=== PATIENT | male | born 1960 | race Two or more races ===

== ENCOUNTER 2022-06-21 03:17 | Emergency (ER) | payer MEDICAID ==
[~2022-06-21] VITALS: Ht 157.5 cm; Wt 57.0 kg
[2022-06-21 03:57] LABS: Basophils # (auto) 0.1 10 ^3/uL (0-0.2); Basophils % (auto) 0.6 % (0.0-2.0); Eosinophils # (auto) 0.2 10 ^3/uL (0-0.8); Eosinophils % (auto) 1.6 % (0.0-7.0); Hematocrit 31.9 % (41.0-53.0); Hemoglobin 10.5 g/dL (13.5-17.5); Lymphocytes # (auto) 5.1 10 ^3/uL (0.4-5.4); Lymphocytes % (auto) 48.9 % (10.0-50.0); Mean Corpuscular Hemoglobin 28.5 pg (28.0-32.0); Mean Corpuscular Hgb Conc. 32.7 g/dL (32.0-36.0); Monocytes # (auto) 0.9 10 ^3/uL (0-1.3); Monocytes % (auto) 8.7 % (0.0-12.0); Neutrophils # (auto) 4.2 10 ^3/uL (1.6-8.6); Neutrophils % (auto) 40.2 % (37.0-80.0); Red Blood Cells 3.67 10^6/uL (4.5-5.90); Red Cell Distribution Width 16.3 % (11.8-14.3); White Blood Cell 10.3 10^3/uL (4.4-10.8)
[2022-06-21 04:13] LABS: BUN/Creatinine Ratio 30.3; Calcium 8.7 mg/dL (8.5-10.1); Potassium 3.3 mmol/L (3.5-5.1)
[2022-06-21 04:16] LABS: Bilirubin, Total 0.7 mg/dL (0.2-1.0); Total Protein 6.4 g/dL (6.4-8.2)
[2022-06-21] MEDS ORDERED: IOHEXOL 350 MG/ML 100ML IJ ONE (04:27)
[2022-06-21] MEDS ORDERED: PANTOPRAZOLE 40 MG/10 ML VIAL INJ IV ONE (04:30)
[2022-06-21] MEDS ORDERED: PANTOPRAZOLE 40mg/50ML NS AE 50 ML IV ONE (04:30)
[2022-06-21] MEDS ORDERED: ONDANSETRON HCL 4 MG/2 ML VIAL IV ONE (04:45)
[2022-06-21] MEDS ORDERED: FAMOTIDINE (10MG/ML) 2ML VL IV ONE (04:45)
[2022-06-21] MEDS ORDERED: ALUM & MAG HYDROX-SIMETH LIQ(MAALOX) 30 ML PO ONE (04:45)
[2022-06-21] MEDS ORDERED: POTASSIUM EFFERVESENT TAB 25 MEQ PO ONE (04:45)
[2022-06-21] MEDS ORDERED: LIDOCAINE VISCOUS 2% 15ML UD PO ONE (04:45)
[2022-06-21 04:51] LABS: INR 1.15 (0.9-1.15); Partial Thromboplastin Time 28.2 sec (24.6-33.4)
[2022-06-21 05:27] LABS: Lactic Acid w/Reflex 10.4 mmol/L (0.4-2.0)
[2022-06-21 08:18] LABS: Urine Bacteria NONE SEEN /hpf (None Seen); Urine Blood Negative /uL (Negative); Urine Specific Gravity 1.046 (1.001-1.035); Urine WBC 2 /hpf (0 - 3)
[2022-06-21] MEDS ORDERED: SODIUM CHLORIDE 0.9% 500 ML IV ONE (09:00)
[2022-06-21] MEDS ORDERED: SODIUM CHLORIDE 0.9% 1,000 ML IV SCH (09:15)
[2022-06-21] MEDS ORDERED: OCTREOTIDE ACETATE 100 MCG in SODIUM CHL 0.9% 50 ML IV ONE (09:15)
[2022-06-21] MEDS ORDERED: OCTREOTIDE ACETATE 500 MCG in SODIUM CHL 0.9% 99 ML IV SCH (09:15)
[2022-06-21] MEDS ORDERED: cefTRIAXone 1GM/50ML D5W 50 ML IV ONE (09:30)
[2022-06-21] MEDS ORDERED: metroNIDAZOLE 500MG/100ML 100 ML IV ONE (09:30)
[2022-06-21] MEDS ORDERED: SODIUM CHLORIDE 0.9% 1,000 ML IV ONE (11:30)
[2022-06-21] MEDS ORDERED: NOREPINEPHRINE 8 MG/250ML KIT 250 ML IV SCH (12:30)
[2022-06-21 13:09] LABS: Basophils # (auto) 0 10 ^3/uL (0-0.2); Eosinophils # (auto) 0 10 ^3/uL (0-0.8); Eosinophils % (auto) 0.1 % (0.0-7.0); Lymphocytes # (auto) 1.5 10 ^3/uL (0.4-5.4); Monocytes # (auto) 0.4 10 ^3/uL (0-1.3); Nucleated Red Blood Cells % 0.1 %; White Blood Cell 4.9 10^3/uL (4.4-10.8)
[2022-06-21 13:13] LABS: Basophils % (auto) 0.5 % (0.0-2.0); Hematocrit 22.9 % (41.0-53.0); Hemoglobin 7.7 g/dL (13.5-17.5); Lymphocytes % (auto) 30.5 % (10.0-50.0); Mean Corpuscular Hgb Conc. 33.9 g/dL (32.0-36.0); Mean Corpuscular Volume 85.5 fL (80.0-100.0); Monocytes % (auto) 8.2 % (0.0-12.0); Neutrophils % (auto) 60.7 % (37.0-80.0); Red Blood Cells 2.67 10^6/uL (4.5-5.90); Red Cell Distribution Width 16.2 % (11.8-14.3)
[2022-06-21 14:05] VITALS: BP 99/58
== END 2022-06-21 14:29 | disposition short-term general hospital (02) ==
LOC: ER 03:17
DX: K92.2 Gastrointestinal hemorrhage, unspecified (principal); E87.6 Hypokalemia; E11.9 Type 2 diabetes mellitus without complications; I10 Essential (primary) hypertension; Z20.822 Contact with and (suspected) exposure to COVID-19
CPT/HCPCS: 36415; 36600; 71045; 74177; 80053; 81001; 82010; 82805; 82962; 83605; 83690; 83735; 84484; 85025; 85384; 85610; 85730; 86850; 86900; 86901; 86920; 87426; 93005; 96361; 96365; 96366; 96367; 96368; 96375; 99291; C9113; J0696; J2405; J3490; J7030; Q9967